=== PATIENT | male | born 1970 | race Caucasian/White ===

== ENCOUNTER 2019-09-09 08:09 | Outpatient (CLI) | payer OTHER, SELFPAY ==
--- NOTE | 2019-09-09 09:07 | MR_ITS ---
WS: [id number] INDICATION: Right kidney mass TECHNIQUE: MRI of the abdomen without and with gadolinium enhancement. Axial T2, axial 2-D fiesta, co pili 2-D fiesta, axial T1 fat sat, coronal T1, axial dual Echo, and multiplanar post gadolinium T1 i maging with fat saturation technique COMPARISON: CT July 23, 2019 FINDINGS: Again seen is the lobulated lower pole right renal mass. Today this measures 2.8 x 1.3 x 1. 9 CM. This lesion demonstrates T2 hyperintensity with susceptibility artifact and heterogeneous enhan cement. Findings are consistent with renal neoplasm. Incidental small upper pole renal cyst measuring 11 mm. Additional tiny upper pole renal cyst. Normal bilateral renal parenchymal enhancement. Left kidney is normal in appearance. Normal gallbladder. Ad renal glands are normal. Normal spleen. Normal gastroesophageal junction. Normal caliber visualized a bdominal aorta. Normal pancreas. MR/MR abdomen wo/w con* [id number] IMPRESSION: 1. Lobulated enhancing right lower pole renal neoplasm measuring 2.8 x 1.3 x 1.9 cm. Recommend urology consultation. 2. Adrenal glands are normal. 3. Incidental 11 mm upper pole right renal cyst.
== END 2019-09-09 08:10 | disposition home or self-care (01) ==
PROVIDERS: Family Provider Physician Assistant Medical; PCP Physician Assistant Medical; Visit Provider Urology
DX: D49.511 Neoplasm of unspecified behavior of right kidney (principal); N28.89 Other specified disorders of kidney and ureter; N28.1 Cyst of kidney, acquired
CPT/HCPCS: 74183